=== PATIENT | male | born 1990 | race Caucasian/White ===

== ENCOUNTER 2017-07-02 12:14 | Emergency (ER) | payer MEDICAID ==
[~2017-07-02] VITALS: Ht 198.1 cm; Wt 109.5 kg
[2017-07-02 14:10] VITALS: BP 133/79
== END 2017-07-02 14:12 | disposition home or self-care (01) ==
LOC: ED 14:06
DX: M96.830 Postprocedural hemorrhage of a musculoskeletal structure following a musculoskeletal system procedure (principal)
CPT/HCPCS: 99282